=== PATIENT | female | born 1955 | race Caucasian/White ===

== ENCOUNTER → 2021-03-06 10:16 | Outpatient (CLI) | payer MEDICAID, SELFPAY ==
--- NOTE | 2021-03-06 10:52 | US_ITS ---
PROCEDURE: US ABD. AORTA SCREENING CLINICAL INDICATION: AAA Evaluate for abdominal aortic aneurysm COMPARISON: No exams were available for comparison FINDINGS: Mid abdominal aortic aneurysm is noted. The dimensions are somewhat difficult to evaluate due to patient's body habitus. The AP dimension is approximately [address] to confirm. Common iliac arteries are not well delineated. IMPRESSION: 4 cm abdominal aortic aneurysm. Consider abdomen CT for confirmation due to ultrasound limitations Dictated by: Gilmer Cardenas MD 03/06/2021 18:43 Gilmer Cardenas MD in [place] 03/06/2021 18:43
[2021-03-06 11:09] LABS: Basophils # 0.1 K/mm3 (0-0.2); Basophils % 0.8 % (0.1-2.0); Eosinophils # 0.2 K/mm3 (0.0-0.4); Eosinophils % 1.9 % (0.1-12.0); Hematocrit 47.8 % (37.0-47.0); Hemoglobin 15.7 g/dL (12.2-16.2); Lymphocytes # 3.4 K/mm3 (0.7-4.5); Lymphocytes % 31.4 % (10-50); Mean Corpuscular Volume 90.9 fl (81-99); Mean Platelet Volume 8.8 fl (7.4-10.4); Monocytes # 0.5 K/mm3 (0.1-1.0); Monocytes % 4.7 % (1.7-9.3); Neutrophils # 6.6 K/mm3 (1.8-7.8); Neutrophils % 61.2 % (37.0-80.0); Platelet Count 277 K/mm3 (142-424); Red Blood Count 5.26 M/mm3 (4.20-5.40); Red Cell Distribution Width 14.8 % (11.5-17.5); White Blood Count 10.7 K/mm3 (4.8-10.8)
[2021-03-06 11:29] LABS: Hemoglobin A1C 5.7 % (4.0-6.0)
[2021-03-06 11:50] LABS: Alanine Aminotransferase 21 U/L (12-78); Albumin Level 4.2 g/dl (3.5-5.0); Albumin/Globulin Ratio 1.3 (1.1-1.8); Alkaline Phosphatase 160 U/L (38-126); Anion Gap 11.8 mEq/L (5-15); Aspartate Amino Transferase 21 U/L (14-36); Bilirubin,Total 0.4 mg/dl (0.2-1.3); Blood Urea Nitrogen 20 mg/dl (7-17); Calcium 9.9 mg/dl (8.4-10.2); Carbon Dioxide 23 mmol/L (22.0-30.0); Chloride 108 mmol/L (98-107); Chol/HDL Ratio 6.4 (1-3.5); Cholesterol 302 mg/dl (140-200); Estimated Glomerular Filt Rate 84 ml/min (>60); GFR (African American) 102 ML/MIN (>60); Globulin 3.2 g/dL (1.3-3.2); Glucose 112 mg/dl (74-100); HDL Cholesterol 47 mg/dl (40-60); Potassium 4.8 mmoL/L (3.5-5.1); Sodium 138 mmol/L (136-145); Total Protein,Serum 7.4 g/dl (6.3-8.2); Triglycerides 174 mg/dl (30-150); VLDL Cholesterol 35 mg/dL (0-40)
[2021-03-06 12:02] LABS: Direct LDL Cholesterol 200.39 mg/dL (100-129)
[2021-03-06 12:22] LABS: Thyroid Stimulating Hormone 1.25 uIU/mL (0.465-4.68)
== END ==
PROVIDERS: Visit Provider Internal Medicine Adolescent Medicine
DX: K21.9 Gastro-esophageal reflux disease without esophagitis (principal); K52.9 Noninfective gastroenteritis and colitis, unspecified
CPT/HCPCS: 36415; 76705; 80053; 80061; 83036; 84443; 85025

== ENCOUNTER → 2021-03-22 09:50 | Outpatient (CLI) | payer MEDICAID, SELFPAY ==
--- NOTE | 2021-03-22 09:59 | CT_ITS ---
Procedure: CT ANGIO ABDOMEN CLINICAL HISTORY: ABDOMINAL AORTIC ANEURYSM W/O RUPTURE AAA seen on US 03/06/2021 COMPARISON: No exams were available for comparison TECHNIQUE: IV Contrast: 100ml Isovue 370 Axial images obtained with sagittal and coronal reformats. All CT scans at the facility use one or more dose reduction, viz: automated exposure control, ma/kV adjustment per patient size (including targeted exams where dose is matched to indication, i.e. head), or iterative reconstruction technique. FINDINGS: The upper abdominal aorta has an unremarkable appearance. There is mild narrowing of the ostium of the celiac artery of approximately 50 percent. The SMA has an unremarkable appearance. The right renal artery is unremarkable. There is stenosis at the ostium of the left renal artery which appears 50 percent or slightly greater.. Atheromatous changes involve the mid and lower abdominal aorta beginning at the level of the renal arteries with mostly soft plaque. There is aneurysmal dilatation of the infrarenal abdominal aorta.. The aorta itself measures approximately 4 cm in transverse dimension. There is also a small rind of slightly irregular soft tissue density surrounding the aorta. This is suspicious for a slow/chronic leak. There is a small intimal flap within the superior aspect of the aneurysm. The aneurysm ends just above the aortic bifurcation. No acute retroperitoneal hemorrhage is apparent. There is focal narrowing of the aorta at the proximal aspect of the aneurysm. This focal area of narrowing is approximately 50 percent compared to the lumen above the narrowing. Incidental note is made of a small umbilical hernia containing fat as well as colonic diverticulosis. IMPRESSION: 1. Complex infrarenal abdominal aortic aneurysm measuring up to 4 cm. A rind of somewhat irregular soft tissue density is present around the aneurysm consistent with a chronic leak. With this soft tissue density the aorta measures 4.5 cm in diameter. There is a small intimal flap within the aneurysm suggesting a small dissection and there is 50 percent stenosis of the aorta just along the superior aspect of the aneurysm. No evidence of acute retroperitoneal hemorrhage. 2. 50 percent stenosis of the cyst proximal celiac and the ostium of the left renal artery. 3. Missed fabián Funk was notified of these findings by telephone 03/23/2021 at 12 30 p.m. Dictated by: Gilmer Cardenas MD 03/23/2021 12:52 Gilmer Cardenas MD in [facility] 03/23/2021 12:52
[2021-03-22 10:30] LABS: Blood Urea Nitrogen 12 mg/dl (7-17); Estimated Glomerular Filt Rate 101 ml/min (>60); GFR (African American) 122 ML/MIN (>60)
== END ==
PROVIDERS: PCP Internal Medicine Adolescent Medicine; Visit Provider Internal Medicine Adolescent Medicine
DX: I71.4 Abdominal aortic aneurysm, without rupture (principal)
CPT/HCPCS: 36415; 74175; 82565; 84520; Q9967

== ENCOUNTER → 2021-04-03 14:48 | Outpatient (CLI) | payer MEDICAID, SELFPAY ==
--- NOTE | 2021-04-03 | XR_ITS ---
PROCEDURE: XR KNEE LT 3V CLINICAL INDICATION: PRIMARY OSTEOARTHRITIS OF KNEES,BILATERAL COMPARISON: No exams were available for comparison FINDINGS: No fracture or dislocation. No lytic or blastic change. There is normal mineralization. There are moderate to severe osteoarthritic changes of the medial compartment with mild osteoarthritis of the patellofemoral joint. Other findings:None. IMPRESSION: Osteoarthritic changes Dictated by: Gilmer Cardenas MD 04/03/2021 16:54 Gilmer Cardenas MD in [facility] 04/03/2021 16:54
--- NOTE | 2021-04-03 | XR_ITS ---
PROCEDURE: XR KNEE RT 3V CLINICAL INDICATION: PRIMARY OSTEOARTHRITIS OF KNEES,BILATERAL COMPARISON: No exams were available for comparison FINDINGS: No fracture or dislocation. No lytic or blastic change. There is normal mineralization. Moderate to severe osteoarthritic changes are present involving the medial compartment and mild osteoarthritic changes of the patellofemoral joint. There is mild lateral tibial subluxation approximately 5 mm. There may be a small suprapatellar effusion with a small calcific density in the suprapatellar region which could be due to small loose body measuring approximately three mm. Other findings:None. IMPRESSION: Osteoarthritic changes as described with possible knee joint effusion and small suprapatellar loose body Dictated by: Gilmer Cardenas MD 04/03/2021 16:53 Gilmer Cardenas MD in [facility] 04/03/2021 16:53
== END ==
PROVIDERS: PCP Internal Medicine Adolescent Medicine; Visit Provider Internal Medicine Adolescent Medicine
DX: M17.0 Bilateral primary osteoarthritis of knee (principal)
CPT/HCPCS: 73562

== ENCOUNTER → 2021-05-26 14:23 | Outpatient (CLI) | payer MEDICAID, SELFPAY ==
--- NOTE | 2021-05-26 14:27 | XR_ITS ---
PROCEDURE: XR KNEE LT 4V CLINICAL INDICATION: BL knee pain COMPARISON: CR XR KNEE RT 3V from 04/03/2021 CR XR KNEE LT 3V from 04/03/2021 FINDINGS: No fracture or dislocation. No lytic or blastic change. There is normal mineralization. Moderate osteoarthritic changes are present at the medial compartment with mild osteoarthritis of the lateral compartment and patellofemoral joint Other findings:None. IMPRESSION: Moderate osteoarthritis Dictated by: Gilmer Cardenas MD 05/26/2021 14:53 Gilmer Cardenas MD in [facility] 05/26/2021 14:53
--- NOTE | 2021-05-26 14:27 | XR_ITS ---
PROCEDURE: XR KNEE RT 4V CLINICAL INDICATION: BL knee pain COMPARISON: CR XR KNEE RT 3V from 04/03/2021 CR XR KNEE LT 3V from 04/03/2021 FINDINGS: There are moderate osteoarthritic changes of the medial compartment similar to the previous exam there is loss of the joint space with osteosclerosis medially and small osteophytes. Faint calcific densities noted superior to the patella and may be due to a loose body. There are mild osteoarthritic changes of the lateral compartment and patellofemoral joint. Other findings:None. IMPRESSION: Moderate osteoarthritic change of the right knee Dictated by: Gilmer Cardenas MD 05/26/2021 14:48 Gilmer Cardenas MD in [place] 05/26/2021 14:48
--- NOTE | 2021-05-26 14:27 | XR_ITS ---
PROCEDURE: XR HIP RT 2-3V W/PELVIS CLINICAL INDICATION: BL knee pain Hip pain COMPARISON: No exams were available for comparison FINDINGS: No fracture or dislocation. No lytic or blastic change. There are mild osteoarthritic changes. Well-circumscribed calcific density is present along the superior aspect of the greater trochanter and may be due to unfused ossification center or an old injury. IMPRESSION: Mild osteoarthritis of the right hip with possible unfused ossification center versus old avulsion injury of the greater trochanter Dictated by: Gilmer Cardenas MD 05/26/2021 14:51 Gilmer Cardenas MD in [place] 05/26/2021 14:51
--- NOTE | 2021-05-26 14:27 | XR_ITS ---
PROCEDURE: XR HIP LT 2-3V W/PELVIS CLINICAL INDICATION: BL knee pain Hip pain COMPARISON: CR XR HIP RT 2-3V W/PELVIS from 05/26/2021 FINDINGS: No fracture or dislocation. No lytic or blastic change. Mild osteoarthritis with slight decrease in the joint space superiorly. Minimal osteophyte formation along the acetabulum inferiorly IMPRESSION: Mild osteoarthritic change otherwise negative Dictated by: Gilmer Cardenas MD 05/26/2021 14:52 Gilmer Cardenas MD in [place] 05/26/2021 14:52
== END ==
PROVIDERS: PCP Internal Medicine Adolescent Medicine; Visit Provider Orthopaedic Surgery
DX: M25.561 Pain in right knee (principal); M25.562 Pain in left knee
CPT/HCPCS: 73502; 73564

== ENCOUNTER → 2021-06-29 12:21 | Outpatient (CLI) | payer MEDICARE, MEDICAID, SELFPAY | PROVIDERS: PCP Internal Medicine Adolescent Medicine; Visit Provider Internal Medicine Adolescent Medicine | DX: Z01.818 Encounter for other preprocedural examination (principal); Z20.822 Contact with and (suspected) exposure to COVID-19 | CPT/HCPCS: U0003 ==

== ENCOUNTER → 2021-08-28 11:14 | Outpatient (CLI) | payer MEDICARE, MEDICAID, SELFPAY ==
[2021-08-28 11:36] LABS: Basophils # 0.2 K/mm3 (0-0.2); Basophils % 1.3 % (0.1-2.0); Eosinophils # 0.2 K/mm3 (0.0-0.4); Eosinophils % 1.6 % (0.1-12.0); Hematocrit 45.9 % (37.0-47.0); Lymphocytes # 3.3 K/mm3 (0.7-4.5); Lymphocytes % 27.3 % (10-50); Mean Corpuscular HGB Conc 32.8 g/dL (31.8-35.4); Mean Corpuscular Hemoglobin 31.2 pg (27.0-31.2); Mean Platelet Volume 9.7 fl (7.4-10.4); Monocytes # 0.5 K/mm3 (0.1-1.0); Monocytes % 4.1 % (1.7-9.3); Neutrophils % 65.6 % (37.0-80.0); Platelet Count 251 K/mm3 (142-424); Red Blood Count 4.83 M/mm3 (4.20-5.40); Red Cell Distribution Width 15.3 % (11.5-17.5); White Blood Count 12.2 K/mm3 (4.8-10.8)
[2021-08-28 12:30] LABS: Alanine Aminotransferase 26 U/L (12-78); Albumin Level 3.9 g/dl (3.5-5.0); Albumin/Globulin Ratio 1.2 (1.1-1.8); Alkaline Phosphatase 213 U/L (38-126); Anion Gap 11.4 mEq/L (5-15); Aspartate Amino Transferase 27 U/L (14-36); Bilirubin,Total 0.5 mg/dl (0.2-1.3); Blood Urea Nitrogen 11 mg/dl (7-17); Calcium 9.8 mg/dl (8.4-10.2); Carbon Dioxide 25 mmol/L (22.0-30.0); Chloride 105 mmol/L (98-107); Chol/HDL Ratio 5.4 (1-3.5); Cholesterol 222 mg/dl (140-200); Estimated Glomerular Filt Rate 124 ml/min (>60); GFR (African American) 150 ML/MIN (>60); Globulin 3.3 g/dL (1.3-3.2); Glucose 109 mg/dl (74-100); HDL Cholesterol 41 mg/dl (40-60); Magnesium 1.7 mg/dl (1.6-2.3); Potassium 4.4 mmoL/L (3.5-5.1); Sodium 137 mmol/L (136-145); Total Protein,Serum 7.2 g/dl (6.3-8.2); Triglycerides 204 mg/dl (30-150); VLDL Cholesterol 41 mg/dL (0-40)
[2021-08-28 12:40] LABS: Direct LDL Cholesterol 122.26 mg/dL (100-129)
[2021-08-28 12:43] LABS: 25-OH Vitamin D, Total 24.9 ng/mL (30-100)
[2021-08-28 12:57] LABS: Thyroid Stimulating Hormone 0.75 uIU/mL (0.465-4.68)
[2021-08-28 13:15] LABS: Vitamin B12 602 pg/mL (239-931)
== END ==
PROVIDERS: Visit Provider Internal Medicine Adolescent Medicine
DX: Z01.812 Encounter for preprocedural laboratory examination (principal); Z11.52 Encounter for screening for COVID-19; Z12.11 Encounter for screening for malignant neoplasm of colon; I49.9 Cardiac arrhythmia, unspecified; E78.5 Hyperlipidemia, unspecified; E55.9 Vitamin D deficiency, unspecified
CPT/HCPCS: 36415; 80053; 80061; 82306; 82607; 83735; 84443; 85025; C9803; U0003; U0005

== ENCOUNTER 2021-08-30 10:56 | Day surgery (SDC) | payer MEDICARE, MEDICAID, SELFPAY ==
[2021-08-24 14:28] VITALS: BMI 45.1
[2021-08-30 11:14] VITALS: BP 147/76; PULSE 85; RESP 18; TEMP 36.6; O2SAT 94
[2021-08-30 11:30] VITALS: O2SAT 94
--- NOTE | 2021-08-30 12:25 | HMH.ANESCL ---
[facility] Anesthesia Checklist - Patient Identification Patient Identification: Arm Band - Structural Data Admitted From: Home Planned Operative Procedure/s: colonoscopy Consent for Planned Operative Procedure(s) Verified: Yes Verified Documents: Surgical Consent, History and Physical - NPO Status Verified Time NPO: 00:00 - Additional verifications Anesthesia Reactions: No - Airway Assessment C-Spine Mobility Assessed: Yes (mp2) TMJ Mobility Assessed: Yes Dentition: Poor Dentition - Neurological Assessment Level of Consciousness: Awake, Alert - Anesthesia Plan Anesthesia Risk discussed: Yes Anesthesia Plan: Verified ASA Class: III Anesthesia Type: MAC [facility] History I have reviewed the patient's past medical history: Yes Medical History: Reports:: Arrhythmia, Gastroesophageal Reflux Disease(GERD), Hyperlipidemia Denies:: Cancer, Diabetes Mellitus Type 1, Diabetes Mellitus Type 2, Internal Pacemaker, MRSA, Seizures *Have you ever received a pneumonia vaccine?: No *Have you received a flu vaccine this season?: No Other Medical History: Reports: Arthritis Anesthesia experience/problems:: nac Other Surgeries: Yes: Cholecystectomy, Colonoscopy, Other. No: Pacemaker Amputation: No Fractures: No - *Social History Smoking Status: Current every day smoker # Packs/Day (cigarettes): 1 Alcohol Intake: never Substance Use Type: denies use *Occupational Status:: employed Housing: house *Travel in the last 8 weeks: None Family Hx:: No significant family history
--- NOTE | 2021-08-30 12:46 | P.PCN_ITS ---
- Procedure: Date: 08/30/21 Patient Date of :: 1955 Procedure Performed:: Total colonoscopy with biopsies and polypectomy Indications:: Patient is a 66-year-old female from [facility] referred by Dr. Baugh's office scheduled for screening colonoscopy. However, the patient states that she has a history of Crohn's disease, ulcerative colitis, and IBS-D. Her symptoms seem to be characterized by mainly diarrhea. She has apparently been hospitalized at outside facility several years ago and given this diagnosis. However, she has never had previous colonoscopy. She does state that she has been scheduled for colonoscopies in the past but apparently was unable to follow through with this. She has a history of arrhythmia, GERD, hyperlipidemia. Apparently recently undergone aneurysm repair. Performing Provider:: Dale Cahn MD Referring Provider:: Leonel Baugh MD Sedation:: MAC sedation Procedure:: Patient was taken to endoscopy procedure room. She was positioned in lateral decubitus position. Adequate intravenous sedation was achieved with anesthesia titration of propofol. Variable stiffness Olympus colonoscope was inserted via the anus. It was advanced to the cecum with some difficulty due to floppiness and redundancy of the sigmoid colon. The colonic preparation was poor. However, fair visualization was able to be achieved with thorough copious irrigation and suctioning. The appendiceal orifice was clearly identified. Terminal ileum was unable to be cannulated due to the patient's anatomy. Within the cecum there was a moderate adenomatous appearing polyp removed with cold cutting snare. As the colonoscope was withdrawn several random biopsies were obtained differentiating right and left colon biopsies. There was a tiny cecal polyp removed with cold biopsy forceps. Ascending colon polyp was removed with cold snare. In the transverse colon there were a couple of polyps 1 removed with cutting snare and one removed with biopsy forceps. The descending colon there was a polyp removed with cold snare. Distal descending colon polyp was removed with cold snare. Proximal sigmoid colon polyp was removed with cold snare. Hemoclip was placed to ensure hemostasis. The rectosigmoid region there were several hyperplastic appearing polyps removed with cold biopsy forceps. She had some appreciable sigmoid diverticulosis. Retroflexion within the rectum revealed no evidence of any appreciable pathologic internal hemorrhoids. Colonoscope was withdrawn. Findings:: Poor colonic preparation. Marginal fair visualization achieved with thorough irrigation and suctioning. No evidence of definite inflammatory bowel disease. Random right and left colon biopsies performed. Polyps as noted above (total of 14 polyps removed) 5 of which were rectosigmoid hyperplastic appearing. Appreciable sigmoid diverticulosis. Recommendations:: Given the poor colonic preparation recommend repeat colonoscopy 1 to 2 years. 1 year if any of the rectosigmoid polyps are adenomatous. Given her symptomatology and reported previous history this may best be served by gastroenterology. Complications:: None immediately apparent Estimated blood obtained (mL): 3
[2021-08-30 12:50] VITALS: BP 96/51; PULSE 68; RESP 18; TEMP 36.2; O2SAT 94
[2021-08-30 13:00] VITALS: BP 97/70; PULSE 71; RESP 16; O2SAT 98
[2021-08-30 13:10] VITALS: BP 126/63; PULSE 67; RESP 16; O2SAT 96
[2021-08-30 13:20] VITALS: BP 128/59; PULSE 69; RESP 18; O2SAT 96
== END 2021-08-30 13:20 | disposition home or self-care (01) ==
LOC: OUTP 10:58
PROVIDERS: PCP Internal Medicine Adolescent Medicine; Visit Provider Surgery
PROC: 0DJD8ZZ Inspection of Lower Intestinal Tract, Via Natural or Artificial Opening Endoscopic (ICD-10-PCS; principal; 2021-08-30 10:30)
DX: Z12.11 Encounter for screening for malignant neoplasm of colon (principal); K63.5 Polyp of colon; K57.30 Diverticulosis of large intestine without perforation or abscess without bleeding; Z87.19 Personal history of other diseases of the digestive system; I49.9 Cardiac arrhythmia, unspecified; K21.9 Gastro-esophageal reflux disease without esophagitis; E78.5 Hyperlipidemia, unspecified; Z90.49 Acquired absence of other specified parts of digestive tract; Z72.0 Tobacco use; Z79.899 Other long term (current) drug therapy
CPT/HCPCS: 45380; 45385; 88305; J2704

== ENCOUNTER → 2022-01-15 13:54 | Outpatient (CLI) | payer MEDICARE, MEDICAID, SELFPAY ==
--- NOTE | 2022-01-15 | CA_ITS ---
APPROVED REPORT EXAM: Comprehensive 2D, Doppler, and color-flow Echocardiogram Verification Engineer: Yvonne Santana RT(R) Ht: 5 ft 7 in Wt: 272lbs BSA: 2.30 BP: 139/76 mmHg Indications: Pre syncope, murmur, hyperlipidemia, smoker, GERD 2D Dimensions LVOT 2.02 cm (M/F) 1.5-2.5 LA Volume 50.60 mL LA Volume Index 22.00 mL/m2 (M/F) 16-34 M-Mode Dimensions RVDd 2.62 cm (0.9-2.6) LA Diam 3.91 cm (1.9-4.0) LVDd 4.39 cm (3.5-5.7) Ao Diam 3.15 cm (2.0-3.7) LVDs 3.18 cm (3.5-5.7) IVSd 0.97 cm (0.6-1.1) PWd 0.85 cm (0.6-1.1) EF (Teich) 53.80% FS 27.60% EDV (Teich) 87.20 mL ESV (Teich) 40.30 mL LV Diastology E Decel Time 260.00 (160-240 msec) E/A Ratio 0.7 MED E' 6.40 (< 7 cm/sec) E'/MED E' Ratio 13.02 (>14) LAT E' 8.50 (<10 cm/sec) E/LAT E' Ratio 9.80 (>14) Aortic Valve LVOT Max 130.00 (70-110 cm/s) LVOT VTI 27.78 cm AoV Peak Adam. 281.00 (50-130 cm/s) AO Peak GR. 31.60 mmHg AO Mean GR. 15.50 (<5 mmHg) AO VTI 57.59 (18-25 cm) AJAY (VTI) 1.55 (2.5-4.5 cm2) Mitral Valve MV E Max Adam. 83.00 (40-130 cm/s) MV A Velocity 112.00 (40-130 cm/s) E/A Ratio 0.75 MV Decel. Time 260.00 (160-240 ms) MV PHT 76.00 ms Left Ventricle Left atrium is mildly enlarged, left ventricle is normal size, mild concentric hypertrophy, visually estimated ejection fraction 55% with no regional wall motion abnormality, grade 1 diastolic dysfunction seen without tissue Doppler evidence of raise left atrial pressure. Right Ventricle Right atrium and right ventricle are normal size and contractility. Aortic Valve Aortic valve is thickened and calcified with restriction in the leaflet mobility, mean gradient across valve is 17 mmHg, valve area is 1.5 cm??? represents mild aortic stenosis, there is no significant aortic insufficiency. Mitral Valve Mitral valve leaflets are minimally thickened, there is mild mitral regurgitation. Tricuspid Valve Tricuspid grossly normal, there is trace tricuspid regurgitation. Tricuspid regurgitation jet velocity is inadequate for calculation of the right ventricular systolic pressure. Pulmonic Valve Pulmonic valve is poorly visualized. Great Vessels Aortic root is normal size. Inferior vena cava is poorly visualized. Pericardium No significant pericardial effusion noted. Conclusion 1. Mildly enlarged left atrium, normal left ventricular size, mild concentric left ventricular hypertrophy, visually estimated ejection fraction 55% with no regional wall motion abnormality, grade 1 diastolic dysfunctions without tissue Doppler evidence of raise left atrial pressure. 2. Thickened and calcified aortic valve with mild aortic stenosis, there is no significant aortic insufficiency. 3. Mild mitral and trace tricuspid regurgitation. 4. No significant pericardial effusion noted. 5. Inferior vena cava is poorly visualized. Electronically signed by : Misael Reid MD 01/15/2022 19:19:37
== END ==
PROVIDERS: PCP Internal Medicine Adolescent Medicine; Visit Provider Internal Medicine Adolescent Medicine
DX: R55 Syncope and collapse (principal); R01.1 Cardiac murmur, unspecified
CPT/HCPCS: 93306

== ENCOUNTER → 2022-02-19 12:51 | Outpatient (CLI) | payer MEDICARE, MEDICAID, OTHER, SELFPAY ==
--- NOTE | 2022-02-19 13:01 | CT_ITS ---
FINAL REPORT CLINICAL HISTORY: H/O NICOTINE DEPENDENCE 1PPD X53 YEARS FINDINGS: Low-Dose Chest CT CTDI vol (mGy): 2.90 DLP (mGy-cm): 103.42 Axial images were obtained from the lung apex to the mid abdomen by computed tomography. Low-dose protocol was utilized. FINDINGS: CHEST: There is a calcification in the left thyroid lobe. There is no axillary adenopathy. There is no hilar or mediastinal adenopathy. The heart is proper size. There is no pericardial or pleural effusion. Limited images of the upper abdomen demonstrate postoperative changes from cholecystectomy. Lung window images demonstrate a 3 mm nodule in the right lower lobe seen on image 49. There is mild emphysema. There is mild scarring. IMPRESSION: 3 mm nodule in the right lower lobe. Lung RADS category 2. Recommend 12 month follow-up low-dose chest CT. Reviewed, Interpreted and Dictated by Dale Mi III, MD Transcribed by Nadja Beaulieu Authenticated by Dale Mi III, MD on 02/19/2022 02:20:42 PM [facility]
== END ==
PROVIDERS: PCP Internal Medicine Adolescent Medicine; Visit Provider Internal Medicine Adolescent Medicine
DX: Z87.891 Personal history of nicotine dependence (principal); Z12.2 Encounter for screening for malignant neoplasm of respiratory organs
CPT/HCPCS: 71271